=== PATIENT | female | born 1965 | race Caucasian/White ===

== ENCOUNTER → 2020-05-19 | Outpatient (CLI) | payer MEDICARE, OTHER ==
[~2020-05-19] MED LIST: ASPIR-LOW81 MG PO; BENTYL 20MG TAB20 MG PO; FLONASE 0.05% N16 GM; Flexeril PO; IBUPROFEN800 MG PO; LEVAQUIN750 MG PO; MEDROL DOSEPAK 24 MG PO; MEGA BIOTIN10000 MCG PO; NEURONTIN 300300 MG PO; NORCO 7.5-3251 EACH PO; PREDNISONE 20 M20 MG PO; PROTONIX40 MG PO; TYLENOL 500 MG500 MG PO
[2020-05-20 10:14] LABS: HBSAG SCREEN Negative (Negative); HCV AB <0.1 (0.0-0.9); HEP B CORE AB, TOT Negative (Negative)
[2020-05-20 14:14] LABS: ALDOLASE 4.8 U/L (3.3-10.3)
[2020-05-23 16:08] LABS: QUANTIFERON MITOGEN VALUE >10.00 IU/mL (.); QUANTIFERON NIL VALUE 0.02 IU/mL (.); QUANTIFERON TB1 AG VALUE 0.03 IU/mL (.); QUANTIFERON TB2 AG VALUE 0.02 IU/mL (.); QUANTIFERON-TB GOLD PLUS Negative (Negative)
[2020-06-01 01:11] LABS: ANTI-EJ AB (RDL) Negative (Negative); ANTI-JO-1 AB (RDL) 101 Units (<20); ANTI-KU AB (RDL) Negative (Negative); ANTI-MDA-5 AB (CADM-140)(RDL) <20 Units (<20); ANTI-MI-2 AB (RDL) Negative (Negative); ANTI-NXP-2 (P140) AB (RDL) <20 Units (<20); ANTI-OJ AB (RDL) Negative (Negative); ANTI-PL-12 AB (RDL) Negative (Negative); ANTI-PL-7 AB (RDL) Negative (Negative); ANTI-PM/SCL-100 AB (RDL) <20 Units (<20); ANTI-SRP AB (RDL) Negative (Negative); ANTI-TIF-1GAMMA AB (RDL) <20 Units (<20); ANTI-U1 RNP AB (RDL) <20 Units (<20); ANTI-U2 RNP AB (RDL) Negative (Negative); ANTI-U3 RNP (FIBRILLARIN)(RDL) Negative (Negative)
== END ==
LOC: LAB 10:28
PROVIDERS: Internal Medicine
DX: D89.89 Other specified disorders involving the immune mechanism, not elsewhere classified (principal); M60.9 Myositis, unspecified; J84.9 Interstitial pulmonary disease, unspecified; R76.8 Other specified abnormal immunological findings in serum; Z11.59 Encounter for screening for other viral diseases; Z79.899 Other long term (current) drug therapy
CPT/HCPCS: 36415; 82085; 82550; 83516; 86235; 86704; 86803; 87340

== ENCOUNTER 2020-07-28 10:29 | Emergency (ER) | payer MEDICARE, OTHER ==
[~2020-07-28 10:29] MED LIST changes: -BENTYL 20MG TAB20 MG PO; -Flexeril PO; -MEDROL DOSEPAK 24 MG PO
[2020-07-28 11:02] LABS: RED BLOOD COUNT 4.88 M/UL (4.00-5.10); WHITE BLOOD COUNT 5.7 K/UL (4.5-11.0)
[2020-07-28 11:26] LABS: BUN/CREATININE RATIO 28 (0-10)
[2020-07-28] MEDS ORDERED: BENTYL 20MG TAB20 MG PO (12:31)
== END 2020-07-28 13:21 | disposition home or self-care (01) ==
LOC: ER1 10:29
PROVIDERS: Emergency Medicine
DX: R10.33 Periumbilical pain (principal); I25.10 Atherosclerotic heart disease of native coronary artery without angina pectoris; Z88.8 Allergy status to other drugs, medicaments and biological substances
CPT/HCPCS: 80053; 81001; 83690; 85025; 96374; 96375; 99284; J2270; J2405; Q9967

== ENCOUNTER 2020-09-08 10:39 | Emergency (ER) | payer MEDICARE, OTHER ==
[~2020-09-08 10:39] MED LIST changes: +BENTYL 20MG TAB20 MG PO
[2020-09-08] MEDS ORDERED: MEDROL DOSEPAK 24 MG PO (13:10)
[2020-09-08] MEDS ORDERED: Flexeril PO (13:10)
== END 2020-09-08 13:55 | disposition home or self-care (01) ==
LOC: ER1 10:39
DX: M54.5 Low back pain (principal); G89.29 Other chronic pain; I25.10 Atherosclerotic heart disease of native coronary artery without angina pectoris; Z88.8 Allergy status to other drugs, medicaments and biological substances; Z90.89 Acquired absence of other organs; Z90.49 Acquired absence of other specified parts of digestive tract
CPT/HCPCS: 81001; 96372; 96374; 96375; 99283; J1100; J1885; J2270; J2405